=== PATIENT | female | born 1985 | race Caucasian/White ===

== ENCOUNTER 2016-08-09 10:55 | Emergency (ER) | payer OTHER ==
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
[2016-08-09 15:53] LABS: Basophils % (Auto) 0.8 % (0.0-1.8); Eosinophils % (Auto) 9.7 % (0.0-4.3); Hematocrit 37.4 % (30.3-42.9); Mean Corpuscular HGB Conc 32 % (30-34); Mean Corpuscular Hemoglobin 26 pg (28-32); Mean Corpuscular Volume 82 fl (79-97); Platelet Count 320 K/mm3 (140-440); Red Blood Count 4.55 M/mm3 (3.65-5.03); Red Cell Distribution Width 17.4 % (13.2-15.2); White Blood Count 10.2 K/mm3 (4.5-11.0)
[2016-08-09 16:10] LABS: Blood Urea Nitrogen 8 mg/dL (7-17); Calcium 8.9 mg/dL (8.4-10.2); Carbon Dioxide 23 mmol/L (22-30); Chloride 97.8 mmol/L (98-107); Glucose 96 mg/dL (65-100); Sodium 135 mmol/L (137-145)
[2016-08-09 16:13] LABS: Anion Gap 18 mmol/L
[2016-08-09 16:16] LABS: Bilirubin,Urine NEG (Negative); Blood,Urine NEG (Negative); Ketones,Urine 80 mg/dL (Negative); Leukocyte Esterase,Urine NEG (Negative); Mucus,Urine FEW /HPF; Nitrite,Urine NEG (Negative); Protein,Urine <15 mg/dL mg/dL (Negative); Urobilinogen,Urine < 2.0 mg/dL (<2.0)
--- NOTE | 2016-08-09 20:49 | Ultrasound Report ---
FINAL REPORT EXAM: US OB < = 14 WEEKS FETUS HISTORY: pelvic pain, TECHNIQUE: Ultrasound obstetrical transabdominal PRIORS: None. FINDINGS: Gestational sac is present the uterus There is a pole present with crown-rump length 4.24 centimeters corresponding to a based made a gestational age of 11 weeks 1 day with estimated date of delivery February 27, 2017 cardiac activity is present with heart rate of 166 beats per minute. The ovaries are normal in size and echogenicity. No free fluid seen in the cul-de-sac IMPRESSION: Single live intrauterine gestation with estimated gestational age of 11 weeks 1 day.
[2016-08-09 21:41] VITALS: BP 130/80
--- NOTE | 2016-08-09 23:57 | Ultrasound Report ---
FINAL REPORT PROCEDURE: Transvaginal obstetrical ultrasound. TECHNIQUE: Real-time transvaginal sonography of the uterus, placenta, amniotic fluid, adnexa, and fetus was performed with image documentation. Measurements were obtained to determine age/size. M-mode Doppler was used to document heartbeat. CPT 23965 HISTORY: , pelvic pain and cramping. COMPARISON: No prior studies are available for comparison. FINDINGS: The uterus appears normal. There is an intrauterine gestational sac. A pole and yolk sac are visible. Cardiac activity is documented at 166 beats per minute. The crown-rump length measurement is 4.2 centimeters. This indicates a menstrual age of 11 weeks 1 day. The estimated date of confinement is 02/27/2017. The ovaries are not clearly visualized. IMPRESSION: Viable intrauterine with a menstrual age of 11 weeks 1 day.
== END 2016-08-09 21:46 | disposition home or self-care (01) ==
LOC: ED 10:55
DX: O20.0 Threatened abortion (principal); O9A.219 Injury, poisoning and certain other consequences of external causes complicating pregnancy, unspecified trimester; O26.899 Other specified pregnancy related conditions, unspecified trimester; M25.512 Pain in left shoulder; M79.1 Myalgia; Z3A.00 Weeks of gestation of pregnancy not specified; V49.49XA Driver injured in collision with other motor vehicles in traffic accident, initial encounter; Y93.9 Activity, unspecified; Y92.9 Unspecified place or not applicable; Y99.9 Unspecified external cause status
CPT/HCPCS: 36415; 76801; 76817; 80048; 81001; 84702; 85025; 86850; 86900; 86901

== ENCOUNTER 2018-08-13 17:33 | Emergency (ER) | payer OTHER ==
[2018-08-13 19:43] LABS: Hematocrit 32.6 % (30.3-42.9); Mean Corpuscular HGB Conc 34 % (30-34); Mean Corpuscular Volume 82 fl (79-97); Platelet Count 350 K/mm3 (140-440); Red Blood Count 3.98 M/mm3 (3.65-5.03); Red Cell Distribution Width 14.5 % (13.2-15.2)
[2018-08-13 20:04] LABS: Alanine Aminotransferase 11 units/L (7-56); Albumin 4.1 g/dL (3.9-5); BUN/Creatinine Ratio 24; Blood Urea Nitrogen 12 mg/dL (7-17); Hemolysis Index 3
--- NOTE | 2018-08-13 20:29 | Emergency Department Report ---
ED Female HPI - General Chief complaint: Vaginal Bleeding Stated complaint: 5 WEEKS /BLEEDING Time Seen by Provider: 08/13/18 19:24 Source: patient Mode of arrival: Ambulatory Limitations: Language Barrier - History of Present Illness Initial comments: 33-year-old female comes in complaining of vaginal bleeding since yesterday morning. Patient states started light and now with heavy. Patient reports she has gone through 6 pads today. She complains of lower back pain that radiates to the front lower pelvic area. Patient states that she is approximately 6 weeks . Patient is 7 para 6. Her last menstrual period was 06/20/2018. She has had no complications with her past pregnancies and does not have an OB doctor yet. This is the first time patient is being seen for this issue. Patient reports that she has abdominal cramping 7 out of 10. She has no past medical history currently takes no medications and has allergies to penicillin. MD Complaint: vaginal bleeding -: days(s) (1) Location: suprapubic Radiation: suprapubic Severity: severe Severity scale (0 -10): 7 Quality: cramping Consistency: constant Improves with: none Worsens with: none Are you Now?: Yes Last Menstrual Period: 06/20/18 EDC: 03/27/19 Associated Symptoms: vaginal bleeding, abdominal pain. denies: nausea/vomiting, fever/chills, headaches, loss of appetite, dysuria, hematuria - Related Data Sexually active: Yes : 7 Para: 6 Previous Rx's Medication Instructions Recorded Last Taken Type Ketorolac [Toradol] 10 mg PO Q6H PRN #10 tablet 11/02/14 Unknown Rx Phenazopyridine [Pyridium] 200 mg PO PC #6 tablet 11/02/14 Unknown Rx Promethazine [Phenergan TAB] 25 mg PO Q6H PRN #12 tablet 11/02/14 Unknown Rx Sulfamethoxazole/Trimethoprim 1 each PO BID #14 tablet 11/02/14 Unknown Rx [Bactrim Ds] Acetaminophen [Acetaminophen ER 650 mg PO Q6HR #20 tablet.er 02/24/15 Unknown Rx TAB] Ferrous Sulfate [Feosol 325 MG tab] 325 mg PO BID #60 tablet 07/14/15 Unknown Rx HYDROcodone/APAP 5-325 [[place] 2 each PO Q4H PRN #30 tablet 07/14/15 Unknown Rx 5-325 mg TAB] Ibuprofen [Motrin 600 MG tab] 600 mg PO Q6H #30 tablet 07/14/15 Unknown Rx Dicyclomine [Bentyl] 20 mg PO QID #40 tablet 03/31/16 Unknown Rx Famotidine [Pepcid] 20 mg PO BID #60 tablet 03/31/16 Unknown Rx HYDROcodone/APAP 5-325 [[place] 1 - 2 each PO Q6HR PRN #20 tablet 03/31/16 Unknown Rx 5/325] Promethazine [Phenergan TAB] 25 mg PO Q6HR PRN #20 tab 03/31/16 Unknown Rx Allergies Allergy/AdvReac Type Severity Reaction Status Date / Time Penicillins Allergy Swelling Verified 03/31/16 16:16 ED Review of Systems ROS: Stated complaint: 5 WEEKS /BLEEDING Other details as noted in HPI Comment: All other systems reviewed and negative Constitutional: denies: chills, fever Genitourinary: other (vaginal bleeding) ED Past Medical Hx - Past Medical History Previous Medical History?: Yes Hx Kidney Stones: Yes Additional medical history: ? Gall bladder problems - Surgical History Past Surgical History?: No Additional Surgical History: D & C - Social History Smoking Status: Never Smoker Substance Use Type: None - Medications Home Medications: Home Medications Medication Instructions Recorded Confirmed Last Taken Type Ketorolac [Toradol] 10 mg PO Q6H PRN #10 tablet 11/02/14 07/13/15 Unknown Rx Phenazopyridine [Pyridium] 200 mg PO PC #6 tablet 11/02/14 07/13/15 Unknown Rx Promethazine [Phenergan TAB] 25 mg PO Q6H PRN #12 tablet 11/02/14 07/13/15 Unknown Rx Sulfamethoxazole/Trimethoprim 1 each PO BID #14 tablet 11/02/14 03/31/16 Unknown Rx [Bactrim Ds] Acetaminophen [Acetaminophen ER 650 mg PO Q6HR #20 tablet.er 02/24/15 07/13/15 Unknown Rx TAB] Ferrous Sulfate [Feosol 325 MG tab] 325 mg PO BID #60 tablet 07/14/15 Unknown Rx HYDROcodone/APAP 5-325 [[place] 2 each PO Q4H PRN #30 tablet 07/14/15 Unknown Rx 5-325 mg TAB] Ibuprofen [Motrin 600 MG tab] 600 mg PO Q6H #30 tablet 07/14/15 Unknown Rx Dicyclomine [Bentyl] 20 mg PO QID #40 tablet 03/31/16 Unknown Rx Famotidine [Pepcid] 20 mg PO BID #60 tablet 03/31/16 Unknown Rx HYDROcodone/APAP 5-325 [[place] 1 - 2 each PO Q6HR PRN #20 tablet 03/31/16 Unknown Rx 5/325] Promethazine [Phenergan TAB] 25 mg PO Q6HR PRN #20 tab 03/31/16 Unknown Rx ED Physical Exam - General Limitations: Language Barrier General appearance: alert, in no apparent distress - Head Head exam: Present: atraumatic, normocephalic - Eye Eye exam: Present: normal appearance - ENT ENT exam: Present: mucous membranes moist - Neck Neck exam: Present: normal inspection, full ROM - GI/Abdominal GI/Abdominal exam: Present: soft. Absent: distended - External exam: Present: normal external exam Speculum exam: Present: vaginal bleeding, tissue (bluish purple hematoma protruding to the cervical os) Bi-manual exam: Present: adnexal tenderness (left), uterine tenderness. Absent: cervical motion tendernes - Extremities Exam Extremities exam: Present: normal inspection, full ROM - Neurological Exam Neurological exam: Present: alert, oriented X3 - Psychiatric Psychiatric exam: Present: normal affect, normal mood - Skin Skin exam: Present: warm, dry, intact, normal color. Absent: rash ED Course Vital Signs 08/13/18 08/13/18 17:38 23:09 Temperature 98.3 F Pulse Rate 71 69 Respiratory 16 14 Rate Blood Pressure 143/61 Blood Pressure 117/74 [Left] O2 Sat by Pulse 99 100 Oximetry ED Medical Decision Making - Lab Data Result diagrams: 08/13/18 19:32 08/13/18 19:32 - Medical Decision Making Patient has been evaluated by this provider in fast track. Tylenol 975 mg given for pain management. CBC CMP ED RhoGAM ABO RhoGAM hCG serum urinalysis wet prep gonorrhea and chlamydia has been ordered. Ultrasound OB less than 14 weeks have been ordered with transvaginal OB. Critical care attestation.: If time is entered above; I have spent that time in minutes in the direct care of this critically ill patient, excluding procedure time. ED Disposition Clinical Impression: Threatened miscarriage in early Disposition: DC-01 TO HOME OR SELFCARE Is pt being admited?: No Does the pt Need Aspirin: No Condition: Stable Instructions: Threatened Miscarriage (ED) Additional Instructions: Please follow up with an cutter hot knife at the next 2-3 days. You will need to have a repeat hCG and possible repeat ultrasound. Please keep a record of how many pads you are using. You can only take Tylenol for pain. Please refrain from any sexual activity until you are cleared through your cutter hot knife. If you are not able to follow up with an cutter hot knife in 2 days please return back to the emergency room to have repeat labs and possible sonogram. Referrals: PRIMARY CARE, [Primary Care Provider] - 3-5 Days [facility] [Provider Group] - 3-5 Days [facility] [Provider Group] - 3-5 Days [facility] [Provider Group] - 3-5 Days [facility] [Provider Group] - 3-5 Days Forms: Accompanied Note, Work/School Release Form(ED) Print Language: ROMANIAN
[2018-08-13] MEDS ORDERED: TYLENOL PO ONE (20:50)
[2018-08-13 21:24] LABS: Total Cells Counted 100
[2018-08-13 21:25] LABS: Platelet Estimate Consistent w Auto
[2018-08-13 21:58] LABS: Bilirubin,Urine NEG (Negative); Blood,Urine LG (Negative); Color,Urine Yellow (Yellow); Mucus,Urine FEW /HPF; Protein,Urine <15 mg/dL mg/dL (Negative); Urobilinogen,Urine < 2.0 mg/dL (<2.0)
--- NOTE | 2018-08-13 22:36 | Ultrasound Report ---
FINAL REPORT EXAM: US OB TRANSVAGINAL HISTORY: preg w/bleeding TECHNIQUE: Ultrasound obstetrical transvaginal PRIORS: Compared with the exam of August 09, 2016 FINDINGS: Uterus measures 9.9 x 5.6 x 6.1 centimeters Endometrial stripe is mildly thickened measuring 9.9 millimeters There is a small loose cystic-appearing focus seen at the fundus along the margin of the endometrial stripe 0.4 centimeters. No definitive gestational sac identified. The pole seen previously is n o longer identified. No structures are observed. Right ovary 2.7 x 1.8 x 2.3 centimeters normal sonographic appearance The left ovary was not identified sonographically IMPRESSION: No gestational sac or structures identified. Findings are most consistent with spontaneous AB Small cystic focus along with endometrial thickening may reflect retained products of conception
--- NOTE | 2018-08-13 22:38 | Ultrasound Report ---
FINAL REPORT EXAM: US OB <= 14 WK FETUS ADD GEST HISTORY: preg w/bleeding TECHNIQUE: Ultrasound obstetrical transabdominal PRIORS: None. FINDINGS: Uterus measures 9.9 x 5.6 x 6.1 centimeters Endometrial stripe is mildly thickened measuring 9.9 millimeters There is a small loose cystic-appearing focus seen at the fundus along the margin of the endometrial stripe 0.4 centimeters. No definitive gestational sac identified. The pole seen previously is n o longer identified. No structures are observed. Right ovary 2.7 x 1.8 x 2.3 centimeters normal sonographic appearance The left ovary was not identified sonographically IMPRESSION: No gestational sac or structures identified. Findings are most consistent with spontaneous AB Small cystic focus along with endometrial thickening may reflect retained products of conception
[2018-08-13 23:10] VITALS: BP 117/74
== END 2018-08-13 23:25 | disposition home or self-care (01) ==
LOC: ED 17:33
DX: O20.0 Threatened abortion (principal); Z3A.01 Less than 8 weeks gestation of pregnancy; Z88.0 Allergy status to penicillin; Z87.442 Personal history of urinary calculi
CPT/HCPCS: 36415; 76801; 76802; 76817; 80053; 81001; 84702; 85007; 85025; 86900; 86901; 87210; 87591; 99285